=== PATIENT | male | born 1930 | race Caucasian/White ===

== ENCOUNTER 2018-08-11 08:45 | Day surgery (SDC) | payer OTHER ==
[2018-08-10 15:30] VITALS: BMI 32.3
[2018-08-11 16:08] VITALS: TEMP 97.7
[2018-08-11 16:18] VITALS: PULSE 58
[2018-08-11 16:21] VITALS: BP 134/80
--- NOTE | 2018-08-16 15:16 | PATH ---
Surgical Pathology Report Patient Name: BIRDIE ZAMORA [facility]. Rec. #: [id number] /Age/Gender: 1930 (Age: 88) / M Account: [id number] Location: [facility] Taken: 08/11/2018 Received: 08/11/2018 Reported: 08/16/2018 Physicians: Soumya Jacob M.D. Specimen(s) Received A: SECOND PORTION OF DUODENUM B: BX ANTRUM C: BX GE JUNCTION Clinical History r/o celiac disease,r/o H pylori gastritis, r/o Robertson's esophagus Final Diagnosis A. SECOND PORTION OF DUODENUM, BIOPSY: DUODENAL MUCOSA WITH NO PATHOLOGIC FINDINGS. Note: Features suggestive of celiac disease are not identified in this biopsy. B. ANTRUM, BIOPSY: MODERATE CHRONIC GASTRITIS WITH INTESTINAL METAPLASIA. IMMUNOSTAIN IS NEGATIVE FOR H. PYLORI ORGANISMS. C. GE JUNCTION, BIOPSY: COLUMNAR (GASTRIC-TYPE ) MUCOSA SHOWING MODERATE CHRONIC INFLAMMATION. NEGATIVE FOR INTESTINAL METAPLASIA. NO ESOPHAGEAL (SQUAMOUS) MUCOSA IS IDENTIFIED. Electronically Signed Olinda Munoz M.D. Gross Description A. Received in formalin, labeled "second portion of duodenum" is one piece of cannon tissue measuring 0.2 cm in greatest dimension. Entirely submitted one cassette. B. Received in formalin, labeled "antrum" are three pieces of cannon tissue ranging from 0.1-0.5 cm in greatest dimension. Entirely submitted one cassette. C. Received in formalin, labeled "GE junction" is one piece of cannon tissue measuring 0.2 cm in greatest dimension. Entirely submitted one cassette. ebram/08/11/2018
== END 2018-08-11 12:30 | disposition home or self-care (01) ==
LOC: FASU-ENDO 08:45
PROVIDERS: ATTEND Internal Medicine Gastroenterology
PROC: 0DB38ZX Excision of Lower Esophagus, Via Natural or Artificial Opening Endoscopic, Diagnostic (ICD-10-PCS; 2018-08-11)
PROC: 0DB98ZX Excision of Duodenum, Via Natural or Artificial Opening Endoscopic, Diagnostic (ICD-10-PCS; principal; 2018-08-11 11:14)
PROC: 0DB68ZX Excision of Stomach, Via Natural or Artificial Opening Endoscopic, Diagnostic (ICD-10-PCS; 2018-08-11 11:14)
DX: K29.50 Unspecified chronic gastritis without bleeding (principal); K20.8 Other esophagitis; R10.9 Unspecified abdominal pain
CPT/HCPCS: 88305-TC; 88342-TC

== ENCOUNTER 2019-05-11 12:17 | Day surgery (SDC) | payer OTHER ==
[2019-05-05 11:01] VITALS: BMI 31.3
[2019-05-11] MEDS ORDERED: PROPOFOL 20 ML ONE (13:44)
[2019-05-11 14:12] VITALS: TEMP 98.5
[2019-05-11 14:32] VITALS: BP 137/70; PULSE 62
--- NOTE | 2019-05-13 16:45 | PATH ---
Surgical Pathology Report Patient Name: BIRDIE ZAMORA [facility]. Rec. #: [id number] /Age/Gender: 1930 (Age: 89) / M Account: [id number] Location: [facility] Taken: 05/11/2019 Received: 05/11/2019 Reported: 05/13/2019 Physicians: Soumya Jacob M.D. Specimen(s) Received A: LIPOMATOUS VALVE B: POLYPECTOMY SIGMOID COLON AT 25 CM Clinical History Anemia Postoperative diagnosis: Lipomatous valve, polyp, diverticulosis, hemorrhoids Final Diagnosis A. LIPOMATOUS VALVE, BIOPSY: COLONIC MUCOSA WITH NO PATHOLOGIC FINDINGS. Note: No lipomatous tissue is identified. B. SIGMOID COLON AT 25 CM, POLYP, POLYPECTOMY: HYPERPLASTIC POLYP. Electronically Signed Olinda Munoz M.D. Gross Description A. Received in formalin, labeled "biopsy lipomatous valve" is a cannon, irregular portion of soft tissue measuring 0.4 cm. in greatest dimension. The specimen is submitted in toto in one cassette. B. Received in formalin, labeled "biopsy sigmoid colon at 25 cm" is a cannon, irregular portion of soft tissue measuring 0.6 cm. in greatest dimension. The specimen is submitted in toto in one cassette. 05/12/2019 saudi05/12/2019
== END 2019-05-11 14:32 | disposition home or self-care (01) ==
LOC: FASU-ENDO 12:17
PROVIDERS: ATTEND Internal Medicine Gastroenterology
PROC: 0DBN8ZX Excision of Sigmoid Colon, Via Natural or Artificial Opening Endoscopic, Diagnostic (ICD-10-PCS; principal; 2019-05-11 13:36)
DX: D64.9 Anemia, unspecified (principal); K63.5 Polyp of colon; K64.1 Second degree hemorrhoids; K57.30 Diverticulosis of large intestine without perforation or abscess without bleeding
CPT/HCPCS: 88305-TC